=== PATIENT | female | born 1975 | race Two or more races ===

== ENCOUNTER → 2016-10-13 | Outpatient (CLI) | payer MEDICAID ==
--- NOTE | 2016-10-13 10:56 | US ---
Dear MORALES Negrete, Thank you for sending your patient, Funmilayo Leon, to us for an US and consultation to assess an atomy. As you know, the patient is a 41 y.o. G6, P4014 at 19 weeks and 5 days with an EDC of 03/04/17 based on an unsure LMP. Her is complicated by AMA >40. This is dated by Funmilayo's LMP which could have varied by a week per her report. By her LMP, h er SHERIN is 03/04/17. She had an US at 16 weeks which gave her an SHERIN of 02/25/17, which is one week diff erent than her unsure LMP. Funmilayo reports an unremarkable past medical and surgical history. Her OB history is significant for 3 t erm NSVDs (last in 2007) and one 1st trimester SAB. She is currently taking PNV and denies any drug a llergies. The patient denies any uterine contractions, vaginal bleeding, or loss of fluid. Today, she is withou t complaints. Genetic Screening: She has had reassuring NIPT (46XX) and AFP results this . US FINDINGS: Number of fetuses: 1 Placental location: Posterior, No previa Placental Cord Insertion: Central presentation: Cephalic Cervix: 4.3 cm, transabdominally MVP: 3.7 cm The adnexa were evaluated. No pathology was seen. Right ovary: Normal Left ovary: Normal heart rate: 142 bpm Measurements: Biparietal diameter: 46 mm, 20 weeks 0 days Head circumference: 171 mm, 19 weeks 5 days Abdominal circumference: 164 mm, 21 weeks 3 days Femur length: 35 mm, 21 weeks 2 days Humerus length: 33 mm, 21 weeks 1 days Transcerebellar diameter: 21 mm, 20 weeks 0 days Average ultrasound age: 20 weeks 5 days Estimated weight: 398 g weight percentile: 98% ANATOMY Supratentorial brain: Normal Cerebral lateral ventricle: 5 mm Posterior fossa: Normal Cisterna magna: 3 mm Nuchal fold: 3.5 mm Lip: Normal Profile: Normal Alveolar Ridge: Appears intact Spine: -- Cervical: Normal -- Thoracic: Normal -- Lumbar: Normal -- Sacral: Normal Heart: -- 4 Chamber: Normal -- Intraventricular septum: Appears intact by Color and Spectral US -- Right Outflow Tract: Normal -- Left Outflow Tract: Normal -- 3 Vessel View: Normal -- Aortic Arch: Normal -- Ductal Arch: Normal Diaphragm: Appears intact Stomach: Normal Abdominal Umbilical Cord Insertion: Normal Right kidney: Normal Left kidney: Normal Bladder: Normal Number of cord vessels: 3 Upper extremities: -- Right Arm: Normal -- Right Hand: Normal -- Left Arm: Normal -- Left Hand: Normal Lower extremities: -- Right Leg: Normal -- Right Foot: Normal, no club foot -- Left Leg: Normal -- Left Foot: Normal, no club foot IMPRESSION: 1. Dating: Today, the fetus measures in the 98%ile for an EDC of 03/04/17. The US age is consistent wi th an SHERIN of 02/25/17 which is the exact SHERIN predicted by her 16 week US. If an SHERIN of 02/25/17 is used , the EFW is appropriate for gestational age at the 66%ile. Based on the concurrence of the 16 week U S with today's US and the unsure nature of Funmilayo's LMP, we recommend CHANGING HER SHERIN to 02/25/17. - Change SHERIN to 02/25/17 with dating by a 16 week US consistent with today's 20 week US 2. Anatomy: The fetus measures appropriate for gestational age, measuring a normal weight and percen tile. Visualization of the fetus today reveals no overt structural anomalies. There is evidence of no rmal amniotic fluid, and movement was seen during the examination. 3. Genetic Screening: This patient has had reassuring NIPT results this . Today, no markers of aneuploidy were seen. While her screening and US results are reassuring, we reviewed that fe viry aneuploidy can only be definitively excluded with diagnostic testing via amniocentesis. After thi s discussion, the patient does not wish to proceed with invasive testing at this time. 4. Maternal Age >40 at Time of Delivery: We discussed the increased risk of preeclampsia, gestational diabetes, IUGR, and term IUFD. - Growth US at 28-32 weeks - Weekly NSTs and fluid checks starting at 36 weeks - Delivery by 40+0 weeks given term IUFD risk - Consider early Glucola with repeat at 26-28 weeks if normal - Close monitoring of blood pressures and urine protein in the third trimester Thank you again for sending this patient to see us today. Approximately 12 minutes of a total visit t estevan of 15 minutes were spent with this patient today in direct face to face counseling regarding toda y's US findings and the above recommendations. Please feel free to contact me with any questions at . Sara Ruiz MD Maternal- Medicine
--- NOTE | 2016-10-13 14:12 | US ---
Detailed Obstetric Ultrasound October 13, 2016 Indication: 41-year-old woman presenting to the maternal medicine perinatology clinic for consu ltation regarding advanced maternal age and assessing anatomy. The estimated gestational age by LMP is 19 weeks and 5 days yielding an EDC of March 04, 2017. The estimated gestational age based on 1 6-week ultrasound is February 25, 2017. Comparison: None. Findings: Number: 1 Presentation: Vertex Placental location: Posterior. No previa. Placenta cord insertion: Central Cervix: 4.3 cm, visualized transabdominally Maximum vertical pocket: 3.7 cm heart rate: 142 bpm Ovaries: Normal. Right: 3.6 x 3.2 x 1.7 cm. Left: 2.0 x 1.4 x 0.9 cm. Biometry: Biparietal diameter: 46 mm 20 weeks, 0 days Head circumference: 171 mm 19 weeks, 5 days Abdominal circumference: 164 mm 21 weeks, 3 days Femur length: 35 mm 21 weeks, 2 days Humerus length: 33 mm 21 weeks, 1 day Transcerebellar diameter: 21 mm 20 weeks, 0 days HC/AC: 1.04 (1.09 - 1.26) FL/BPD: 77% FL/AC: 22% Average ultrasound age: 20 weeks, 5 days EDC based on today's average ultrasound age: February 25, 2017. Estimated weight is 398 grams +/- 58 grams. The estimated weight is at the 98th percentil e based on previous dating (based on LMP). The estimated weight is at 66th percentile if the 16 -week ultrasound dating is utilized. Anatomy Survey: Supratentorial brain: Normal Posterior fossa: Normal Spine: Normal Nuchal fold: Normal, 3.5 mm Nose, alveolar ridge, and lips: Normal Facial profile: Normal Heart: Four-chamber heart. Intact interventricular septum. Cardiac outflow tracts: Normal Stomach: Normal Umbilical cord insertion: Normal Kidneys: Normal, no pyelectasis Bladder: Normal Number of cord vessels: Three Upper extremities: Normal Lower extremities: Normal. No clubbing. Impression: 1. Living lombardi in vertex presentation. Size concordant with dates. The estimated ges tational age by biometry is 20 weeks and 5 days yielding an EDC of February 25, 2017. The estimated gestational age by LMP is 19 weeks and 5 days. The estimated gestational age by 16-week ultrasound is 20 weeks 5 days. 2. The fetus resides in the 66th percentile based on dating from 16-week ultrasound (98th percentile if LMP dating is utilized). 3. Normal anatomy. No anomalies detected. 4. Posterior placenta. No previa. 5. Please refer to Dr. Ruiz's perinatology consultation and recommendations for follow up.
== END ==
LOC: FIMAGING 09:19
PROVIDERS: ATTEND Physician Assistant
DX: O09.512 Supervision of elderly primigravida, second trimester (principal); Z3A.19 19 weeks gestation of pregnancy

== ENCOUNTER → 2017-01-16 | Outpatient (CLI) | payer MEDICAID | LOC: FIMAGING 13:08 | DX: O09.523 Supervision of elderly multigravida, third trimester (principal); Z3A.34 34 weeks gestation of pregnancy ==